=== PATIENT | female | born 1985 | race Caucasian/White ===

== ENCOUNTER 2017-08-19 15:06 | Emergency (ER) | payer MEDICAID ==
[2017-08-19 16:27] LABS: BASOPHIL % 0.3 % (0-2); PLATELET COUNT 353 x10^3mcL (130-400); RED CELL DISTRIBUTION WIDTH 12.3 % (11.5-14.5)
[2017-08-19 16:42] LABS: ALBUMIN 3.7 g/dL (3.4-5.0); ALKALINE PHOSPHATASE 54 U/L (46-116); ALT/SGPT 18 U/L (14-59); AST/SGOT 16 U/L (15-37); BILIRUBIN TOTAL 0.1 mg/dL (0.20-1.00); CALCIUM 8.2 mg/dL (8.5-10.1); CARBON DIOXIDE 27.3 mmol/L (21-32); CHLORIDE SERUM 102 mmol/L (98-107); CREATININE SERUM 0.8 mg/dL (0.6-1.0); GFR1 > 60 mL/min; GLUCOSE SERUM 129 mg/dL (74-106); MAGNESIUM 1.7 mg/dL (1.8-2.4); SODIUM SERUM 141 mmol/L (136-145); TOTAL PROTEIN, SERUM 7.7 g/dL (6.4-8.2)
[2017-08-19 16:45] LABS: CHOLESTEROL 108 mg/dL (<200); HDL CHOLESTEROL 33 mg/dL (40-60)
[2017-08-19 16:46] LABS: POTASSIUM SERUM 2.7 mmol/L (3.5-5.1)
[2017-08-19 16:52] LABS: FREE T4 1.11 ng/dL (0.76-1.46); FREE THYROXINE INDEX 3.3 ug/dL (1.4-4.5); T4(THYROXINE) 10.2 ug/dL (4.7-13.3)
[2017-08-19 16:54] LABS: T3 TOTAL 1.26 ng/mL
[2017-08-19 17:38] LABS: AMPHETAMINE QUAL UR NONE DETECTED (NEG <=1000)
[2017-08-19 19:58] VITALS: BP 137/82
== END 2017-08-19 19:55 | disposition short-term general hospital (02) ==
LOC: ED 15:06
PROVIDERS: Emergency Medicine
DX: R41.82 Altered mental status, unspecified (principal); E87.6 Hypokalemia; E83.42 Hypomagnesemia
CPT/HCPCS: 83880; 84439; J1953; J2060; J2405; J3480; J3490; J7050; Q0092

== ENCOUNTER 2018-04-22 23:36 | Emergency (ER) | payer OTHER ==
[~2018-04-22] VITALS: Ht 160 cm; Wt 58.1 kg
[2018-04-22 23:43] VITALS: Ht 160 cm; Wt 58.1 kg
[2018-04-23 01:01] VITALS: BP 168/103
== END 2018-04-23 01:01 | disposition home or self-care (01) ==
LOC: ED 23:36
DX: R10.13 Epigastric pain (principal); R51 Headache; R11.0 Nausea; R00.2 Palpitations
CPT/HCPCS: 82962; Q0162